=== PATIENT | male | born 1995 | race Two or more races ===

== ENCOUNTER 2022-09-10 13:50 | Emergency (ER) | payer MEDICAID ==
[~2022-09-10] VITALS: Ht 188 cm; Wt 84.8 kg
--- NOTE | 2022-09-10 14:09 | NUR ---
PT WALKED INTO ER C/O RLQ ABDOMINAL PAIN WHEN EATING "ON AND OFF FOR 2 YEARS", WORSE TODAY. AMBULATORY WITH STEADY GAIT. AAOX4. AWAITING MD ORDERS.
--- NOTE | 2022-09-10 14:22 | NUR ---
ESTABLISHED IV 18G RIGHT AC. BLOOD DRAWN AND SENT TO LAB.
[2022-09-10 14:27] LABS: BASOPHILS % (AUTO) 0.3 % (0.0-2.0); EOSINOPHILS % (AUTO) 1.1 % (0.0-6.0); HEMATOCRIT 47 % (39-51); HEMOGLOBIN 15.3 g/dL (13.5-17.5); LYMPHOCYTES # (AUTO) 2.5 K/uL (0.8-4.8); MEAN CORPUSCULAR HGB CONC 33 g/dl (31.0-36.0); MEAN CORPUSCULAR VOLUME 87 fL (80-96); MONOCYTES # (AUTO) 0.5 K/uL (0.1-1.30); MONOCYTES % (AUTO) 5.9 % (2.0-12.0); NEUTROPHILS # (AUTO) 4.7 K/uL (1.8-8.9); NEUTROPHILS % (AUTO) 60.7 % (43.0-81.0); PLATELET COUNT (AUTO) 246 K/uL (150-450); RED BLOOD CELL COUNT(AUTO) 5.43 MIL/uL (4.5-6.0); WHITE BLOOD COUNT (AUTO) 7.8 K/uL (4.3-11.0)
--- NOTE | 2022-09-10 14:28 | NUR ---
PT TAKEN TO CT VIA KATHR[facility]
[2022-09-10] MEDS ORDERED: IV NS 0.9% 1,000 ML BAG IV ONE (14:30)
--- NOTE | 2022-09-10 14:34 | NUR ---
URINE SAMPLE COLLECTED AND SENT TO LAB
--- NOTE | 2022-09-10 14:36 | NUR ---
RETURN FROM CT
--- NOTE | 2022-09-10 14:47 | NUR ---
DR. CASITLLO AT BEDSIDE
[2022-09-10 14:51] LABS: ALBUMIN 3.8 g/dL (3.4-5.0); BILIRUBIN,DIRECT 0.1 mg/dL (0.0-0.2); BILIRUBIN,TOTAL 0.5 mg/dL (0.2-1.0); CALCIUM, SERUM 8.9 mg/dL (8.5-10.1); CREATININE 1.2 mg/dL (0.6-1.3); POTASSIUM 4.2 mmol/L (3.5-5.1)
--- NOTE | 2022-09-10 14:55 | NUR ---
RN NOTES PATIENT GETTING NS 1000 ML BOLUS X1.
[2022-09-10] MEDS ORDERED: FAMO-131 PO (15:22)
[2022-09-10 15:26] LABS: BILIRUBIN,URINE NEGATIVE (NEGATIVE); COLOR,URINE YELLOW (YELLOW); LEUKOCYTE ESTERASE ,URINE NEGATIVE (NEGATIVE); NITRITE, URINE NEGATIVE (NEGATIVE); PH,URINE 8.5 (5.0-8.0); PROTEIN,URINE NEGATIVE (NEGATIVE); UGLUCOSE NEGATIVE (NEGATIVE)
--- NOTE | 2022-09-10 15:30 | NUR ---
Patient discharged to home in stable condition. Written and verbal after care instructions given. Patient verbalizes understanding of instruction.IV removed. Catheter intact and site benign. Pressure and 4x4 applied to site. No bleeding noted.
[2022-09-10 15:32] VITALS: BP 128/72
[2022-09-10 16:28] LABS: BACTERIA,URINE None seen /HPF (None Seen); RBC,URINE NONE SEEN /HPF (0-2); SQUAMOUS EPITHELIAL CELL,UR None Seen /HPF (None Seen); WBC,URINE NONE SEEN /HPF (0-3)
[2022-09-10 16:29] LABS: URINE AMORPHOUS URATE Few /HPF (None Seen)
--- NOTE | 2022-09-15 11:36 | NUR ---
CLARIFICATION ON END TIME FOR IV NS. ENDTIME IS 1422 INSTEAD OF 0422.
== END 2022-09-10 15:33 | disposition home or self-care (01) ==
LOC: ER 13:59
DX: R10.31 Right lower quadrant pain (principal); Z60.2 Problems related to living alone; Z79.899 Other long term (current) drug therapy
CPT/HCPCS: 36415; 80048-TC; 80076-TC; 81001; 83690-TC; 85025-TC; J7030

== ENCOUNTER 2024-09-29 13:13 | Emergency (ER) | payer MEDICAID ==
[~2024-09-29 13:13] MED LIST: FAMO-131 PO
== END 2024-09-29 14:20 | disposition left against medical advice (07) ==
LOC: ER 13:17
DX: M27.2 Inflammatory conditions of jaws (principal); Z53.21 Procedure and treatment not carried out due to patient leaving prior to being seen by health care provider